=== PATIENT | female | born 1950 | race Two or more races ===

== ENCOUNTER 2023-05-04 05:03 | Emergency (ER) | payer MEDICARE ==
[~2023-05-04] VITALS: Ht 170.2 cm; Wt 119.0 kg
[2023-05-04 06:35] VITALS: BP 149/85; PULSE 103; RESP 20; TEMP 98.9; O2SAT 97
[2023-05-04] MEDS ORDERED: cefTRIAXone SOD 1,000 MG VL IM ONE ×2 (07:00)
[2023-05-04] MEDS ORDERED: PROM1SOL4 PO (07:05)
[2023-05-04] MEDS ORDERED: AUG875T PO (07:05)
== END 2023-05-04 07:11 | disposition home or self-care (01) ==
LOC: ER 05:03
DX: J20.9 Acute bronchitis, unspecified (principal); H65.92 Unspecified nonsuppurative otitis media, left ear; I10 Essential (primary) hypertension; E78.5 Hyperlipidemia, unspecified; E11.9 Type 2 diabetes mellitus without complications; R07.89 Other chest pain
CPT/HCPCS: 71045; 96372; 99284; J0696

== ENCOUNTER 2024-06-25 09:57 | Emergency (ER) | payer MEDICARE, OTHER ==
[~2024-06-25] VITALS: Ht 170.2 cm; Wt 90.0 kg
[~2024-06-25 09:57] MED LIST: AUG875T PO; PROM1SOL4 PO
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
[2024-06-25] MEDS ORDERED: CYCL-838 PO (11:55)
[2024-06-25] MEDS ORDERED: IBU600T PO (11:55)
[2024-06-25 12:08] VITALS: BP 144/79; PULSE 85; RESP 20; TEMP 97.5; O2SAT 97
== END 2024-06-25 12:13 | disposition home or self-care (01) ==
LOC: ER 09:57 → EDUNIT# 09:57 → EDBD 09:57 → ER 12:08
DX: S16.1XXA Strain of muscle, fascia and tendon at neck level, initial encounter (principal); S00.03XA Contusion of scalp, initial encounter; E11.9 Type 2 diabetes mellitus without complications; E78.5 Hyperlipidemia, unspecified; I10 Essential (primary) hypertension; V89.2XXA Person injured in unspecified motor-vehicle accident, traffic, initial encounter; Y93.89 Activity, other specified; Y92.89 Other specified places as the place of occurrence of the external cause; Y99.8 Other external cause status
CPT/HCPCS: 70450; 72040